=== PATIENT | male | born 1955 | race Caucasian/White ===

== ENCOUNTER 2019-06-29 14:52 | Outpatient (CLI) | payer BC ==
[2019-06-29 18:33] LABS: Mean Corpuscular HGB CONC 34.7 g/dL (32.0-36.0); Mean Corpuscular Hemoglobin 30.4 pg (27.0-31.0); Mean Corpuscular Volume 87.6 fL (78.0-98.0); Mean Platelet Volume 7.5 fL (7.4-10.4); Platelet Count 187 thou/uL (130-400); RBC Distribution Width 12.5 % (11.5-14.5); Red Blood Cell (RBC) Count 4.92 mill/uL (4.70-6.10); White Blood Cell (WBC) Count 5.2 thou/uL (4.8-10.8)
[2019-06-29 18:39] LABS: PTT 31.3 SEC (22.9-36.1); Prothrombin Time 12.8 SEC (12.0-14.7)
[2019-06-29 18:48] LABS: Anion Gap 15 mmol/L (10-20); BUN (Urea Nitrogen) 11 mg/dL (8.4-25.7); Calc. Creatinine Clearance 0 mL/min (70-130); Calcium 9.6 mg/dL (7.8-10.44); Carbon Dioxide 25 mmol/L (23-31); Chloride 104 mmol/L (98-107); Estimated GFR-MDRD 74; Glucose 244 mg/dL (80-115); Sodium 140 mmol/L (136-145)
--- NOTE | 2019-07-02 16:46 | EKG ---
Test Reason : Blood Pressure : / mmHG Vent. Rate : 060 BPM Atrial Rate : 060 BPM P-R Int : 180 ms QRS Dur : 116 ms QT Int : 432 ms P-R-T Axes : 042 003 027 degrees QTc Int : 432 ms Normal sinus rhythm Inferior infarct , age undetermined Abnormal ECG Confirmed by DR. Ruby FLORES ([id number]) on 07/02/2019 4:46:13 PM Referred By: [facility] Confirmed By:DR. Ruby FLORES
== END 2019-06-29 14:53 | disposition home or self-care (01) ==
LOC: LABBT 14:52
PROVIDERS: ATTEND Internal Medicine Cardiovascular Disease
DX: Z01.818 Encounter for other preprocedural examination (principal); I48.19 Other persistent atrial fibrillation
CPT/HCPCS: 80048; 85027; 85610; 85730; 93005; 93010

== ENCOUNTER 2019-07-02 07:00 | Day surgery (SDC) | payer BC ==
[2019-06-29 17:30] VITALS: BMI 33.4
[2019-07-02] MEDS ORDERED: Propofol 500 MG/50 ML VIAL ONE ×2 (08:59→11:21)
[2019-07-02] MEDS ORDERED: Midazolam HCl 2 mg/2 ml Vial ONE (08:59)
[2019-07-02] MEDS ORDERED: Fentanyl 100 MCG/2 ML VIAL ONE (08:59)
[2019-07-02] MEDS ORDERED: Lidocaine 1% (PF) 30 ML VIAL ONE ×2 (09:28→10:14)
[2019-07-02] MEDS ORDERED: PROPOFOL 200 MG/20 ML VIAL ONE (10:44)
--- NOTE | 2019-07-02 14:19 | OP ---
DATE OF PROCEDURE: 07/02/2019 REASON FOR PROCEDURE: Mr. Hall is a 63-year-old man with history of atrial arrhythmias. He also had issues with developing left bundle-branch block. The flecainide was required in the past to suppress his atrial arrhythmias. He also has a significant sinus node dysfunction even in the absence of significant AV gianni blocking agents, has essential tachy-madi syndrome. He is here for EP study and potential pacing lead insertion. DESCRIPTION OF PROCEDURE: The patient received propofol by anesthesia specialist. After adequate level of sedation achieved, the right femoral venous area was prepped and draped and anesthetized using subcutaneous lidocaine. Under ultrasound guidance, an 8-Italian sheath was introduced, through which an 8-mm ablation catheter was advanced to the right atrium, right ventricle, His bundle, and CS position. Pacing mapping recording was performed in each location including the pacing the left atrium via the CS. Carto 3D map of the right atrium and His bundle area was also performed, which was used in a subsequent procedure during his lead insertion. Following findings noted. Baseline rhythm was sinus rhythm with RR interval of 1136, WI 178, QRS 103, QT 435, AH 88, and HV 48 milliseconds. Sinus node recovery time was 1811, corrected 675 milliseconds. AV Wenckebach cycle length was 360 milliseconds. At this point, no definite bundle branch aberration was seen with rapid atrial pacing. AV node ERP was 600/240 milliseconds without dual AV gianni physiology noted. Short atrial fibrillation was induced, which is eventually self-terminated as well. CONCLUSION: 1. Successful visualization of the His bundle and marking out the 3D map to aid His pacer lead positioning. 2. Abnormal sinus node recovery time. 3. No left bundle aberration at this time with rapid atrial pacing. 4. No dual AV gianni physiology or accessory pathway is noted. No other supraventricular tachycardia induced except for atrial fibrillation. Job ID: [id number] [facility]
--- NOTE | 2019-07-02 14:26 | RAD ---
PORTABLE CHEST: Date: 07/02/19 HISTORY: Post pacemaker. FINDINGS: Heart size appears slightly enlarged. A pacemaker is present. No signs of pneumothorax. Lungs are irving ar of infiltrates. IMPRESSION: Post pacemaker placement. No signs of pneumothorax. POS: [facility]
== END 2019-07-02 16:30 | disposition home or self-care (01) ==
LOC: CCL 07:00
PROVIDERS: ATTEND Internal Medicine Cardiovascular Disease
PROC: 02HK3JZ Insertion of Pacemaker Lead into Right Ventricle, Percutaneous Approach (ICD-10-PCS; principal; 2019-07-02)
PROC: 02H43JZ Insertion of Pacemaker Lead into Coronary Vein, Percutaneous Approach (ICD-10-PCS; principal; 2019-07-02)
PROC: 0JH606Z Insertion of Pacemaker, Dual Chamber into Chest Subcutaneous Tissue and Fascia, Open Approach (ICD-10-PCS; principal; 2019-07-02)
PROC: 02H63JZ Insertion of Pacemaker Lead into Right Atrium, Percutaneous Approach (ICD-10-PCS; principal; 2019-07-02)
DX: I48.0 Paroxysmal atrial fibrillation (principal); I49.5 Sick sinus syndrome; E11.9 Type 2 diabetes mellitus without complications; I10 Essential (primary) hypertension; I44.7 Left bundle-branch block, unspecified; E66.9 Obesity, unspecified; Z88.6 Allergy status to analgesic agent; Z88.1 Allergy status to other antibiotic agents; Z79.4 Long term (current) use of insulin; Z79.899 Other long term (current) drug therapy; Z79.01 Long term (current) use of anticoagulants; Z88.0 Allergy status to penicillin; Z68.33 Body mass index [BMI] 33.0-33.9, adult
CPT/HCPCS: 33208; 36416; 71045; 76942; 93005; 93010; C1769; C1785; C1898; C2630; J1644; J2001; J2250; J2704; J3010; J3370; J3490

== ENCOUNTER 2019-07-10 09:21 | Emergency (ER) | payer BC ==
[2019-07-10] MEDS ORDERED: Nitroglycerin 2% Ointment 1 INCH/1 GM Packet ONE (09:44)
[2019-07-10 10:07] LABS: #Basophils 0.1 thou/uL (0.0-0.2); #Eosinphils 0.3 thou/uL (0.0-0.7); #Lymphocytes 1.4 thou/uL (1.20-3.40); #Monocytes 0.4 thou/uL (0.11-0.59); #Neutrophils 3.3 thou/uL (1.40-6.50); %Eosinophils 5.5 % (0.0-10.0); %Lymphocytes 25.9 % (21.0-51.0); %Monocytes 6.9 % (0.0-10.0); %Neutrophils 60.8 % (42.0-75.0); Hemoglobin 15.8 g/dL (14.0-18.0); Mean Corpuscular Volume 88.1 fL (78.0-98.0); Mean Platelet Volume 7.6 fL (7.4-10.4); Platelet Count 187 thou/uL (130-400); RBC Distribution Width 12.5 % (11.5-14.5); Red Blood Cell (RBC) Count 5.43 mill/uL (4.70-6.10); White Blood Cell (WBC) Count 5.4 thou/uL (4.8-10.8)
--- NOTE | 2019-07-10 10:34 | RAD ---
FRONTAL RADIOGRAPH CHEST: 07/10/2019 HISTORY: Intermittent chest pain with shortness of breath. COMPARISON: 07/02/2019 FINDINGS: Stable dual-lead transvenous pacing device, inserted via a left subclavian approach. Stable heart and mediastinal contours. No pneumothorax or pleural fluid. No focal consolidation or alveolar edema. IMPRESSION: Stable appearance of the chest. No acute findings. POS: [facility]
[2019-07-10 11:46] LABS: ALT (SGPT) 28 U/L (8-55); AST (SGOT) 21 U/L (5-34); Albumin 4.2 g/dL (3.4-4.8); Alkaline Phosphatase 58 U/L (40-110); Anion Gap 14 mmol/L (10-20); BUN (Urea Nitrogen) 14 mg/dL (8.4-25.7); Bilirubin, Total 0.4 mg/dL (0.2-1.2); Calc. Creatinine Clearance 0 mL/min (70-130); Calcium 9.6 mg/dL (7.8-10.44); Carbon Dioxide 24 mmol/L (23-31); Chloride 105 mmol/L (98-107); Estimated GFR-MDRD 82; Globulin 2.5 g/dL (2.4-3.5); Glucose 138 mg/dL (80-115); Potassium 4.2 mmol/L (3.5-5.1); Protein, Total 6.7 g/dL (5.8-8.1); Sodium 139 mmol/L (136-145)
== END 2019-07-10 13:00 | disposition home or self-care (01) ==
LOC: ERS 09:21
DX: I49.9 Cardiac arrhythmia, unspecified (principal); I48.91 Unspecified atrial fibrillation; I48.92 Unspecified atrial flutter; Z79.899 Other long term (current) drug therapy; Z79.01 Long term (current) use of anticoagulants
CPT/HCPCS: 36415; 71045; 80053; 84484; 85025; 93005

== ENCOUNTER 2019-12-14 10:08 | Outpatient (CLI) | payer BC ==
[2019-12-14 11:16] LABS: Hemoglobin 15.3 g/dL (14.0-18.0); Mean Corpuscular HGB CONC 34.3 g/dL (32.0-36.0); Mean Corpuscular Hemoglobin 30.9 pg (27.0-31.0); Mean Corpuscular Volume 90.2 fL (78.0-98.0); Mean Platelet Volume 7.5 fL (7.4-10.4); Platelet Count 170 thou/uL (130-400); RBC Distribution Width 12.2 % (11.5-14.5); Red Blood Cell (RBC) Count 4.95 mill/uL (4.70-6.10); White Blood Cell (WBC) Count 5.1 thou/uL (4.8-10.8)
[2019-12-14 11:21] LABS: PTT 32.6 SEC (22.9-36.1); Prothrombin Time 12.8 SEC (12.0-14.7)
[2019-12-14 11:24] LABS: Anion Gap 14 mmol/L (10-20); BUN (Urea Nitrogen) 14 mg/dL (8.4-25.7); Calc. Creatinine Clearance 0 mL/min (70-130); Calcium 9.6 mg/dL (7.8-10.44); Carbon Dioxide 25 mmol/L (23-31); Chloride 103 mmol/L (98-107); Estimated GFR-MDRD 81; Glucose 266 mg/dL (80-115); Potassium 4.6 mmol/L (3.5-5.1); Sodium 137 mmol/L (136-145)
== END 2019-12-14 10:09 | disposition home or self-care (01) ==
LOC: LABBT 10:08
PROVIDERS: ATTEND Internal Medicine Cardiovascular Disease
DX: Z01.812 Encounter for preprocedural laboratory examination (principal); Z51.81 Encounter for therapeutic drug level monitoring; I48.91 Unspecified atrial fibrillation; Z79.01 Long term (current) use of anticoagulants
CPT/HCPCS: 80048; 85027; 85610; 85730

== ENCOUNTER 2019-12-18 08:48 | Outpatient (CLI) | payer BC, OTHER ==
[2019-12-18 17:06] LABS: SARS-CoV-2 MS2 Positive; SARS-CoV-2 N Gene Negative; SARS-CoV-2 S Gene Negative; SARS-CoV-2 orf1ab Negative
== END 2019-12-18 08:49 | disposition home or self-care (01) ==
LOC: LABBT 08:48
PROVIDERS: ATTEND Internal Medicine Cardiovascular Disease
DX: Z01.812 Encounter for preprocedural laboratory examination (principal); Z11.59 Encounter for screening for other viral diseases; I48.91 Unspecified atrial fibrillation
CPT/HCPCS: 87635; U0003

== ENCOUNTER 2019-12-19 05:46 | Observation (INO) | payer BC ==
[2019-12-19] MEDS ORDERED: Fentanyl 100 MCG/2 ML VIAL ONE (06:52)
[2019-12-19] MEDS ORDERED: Lidocaine 2% Jelly 5 ML TUBE ONE (06:52)
[2019-12-19] MEDS ORDERED: Heparin 10,000 UNITS/1 ML VIAL ONE ×3 (07:01→10:30)
[2019-12-19] MEDS ORDERED: Isoproterenol 0.2 MG/1 ML AMP ONE (08:18)
[2019-12-19] MEDS ORDERED: PROPOFOL 200 MG/20 ML VIAL ONE (08:25)
[2019-12-19] MEDS ORDERED: Rocuronium Bromide 10 MG/ML (10ML VIAL) ONE (08:25)
[2019-12-19] MEDS ORDERED: EPHEDRINE 25 MG/5 ML SYRINGE ONE (08:25)
[2019-12-19] MEDS ORDERED: PHENYLEPHRINE-NS 100 MCG/ML 10 ML SYRINGE ONE (08:25)
[2019-12-19] MEDS ORDERED: Glycopyrrolate 0.2 MG/ML 5 ML SYRINGE ONE (08:25)
[2019-12-19] MEDS ORDERED: Succinylcholine Chloride 20 MG/ML 10 ml SYRINGE FS ONE (08:25)
[2019-12-19] MEDS ORDERED: Ondansetron PF 4 MG/2 ML Vial ONE (08:25)
[2019-12-19] MEDS ORDERED: Lidocaine 1% PF 5 ML VIAL ONE (08:25)
[2019-12-19] MEDS ORDERED: Heparin 25,000 units/D5W 500 ML ONE (08:58)
[2019-12-19] MEDS ORDERED: Rocuronium Bromide 50 MG/5 ML VIAL ONE (10:54)
[2019-12-19] MEDS ORDERED: Protamine Sulfate 50 MG/5 ML VIAL ONE (11:33)
--- NOTE | 2019-12-19 12:47 | EKG ---
Test Reason : PREOP Blood Pressure : / mmHG Vent. Rate : 066 BPM Atrial Rate : 066 BPM P-R Int : 132 ms QRS Dur : 108 ms QT Int : 422 ms P-R-T Axes : 024 -03 029 degrees QTc Int : 442 ms Electronic atrial pacemaker with one PAC one PVC When compared with ECG of 10-JUL-2019 09:30, Electronic atrial pacemaker has replaced Sinus rhythm Criteria for Septal infarct are no longer Present Confirmed by DR. Alee RADER ([id number]) on 12/19/2019 12:47:34 PM Referred By: [facility] Confirmed By:DR. Alee RADER
--- NOTE | 2019-12-19 12:48 | EKG ---
Test Reason : PREOP Blood Pressure : / mmHG Vent. Rate : 099 BPM Atrial Rate : 147 BPM P-R Int : 000 ms QRS Dur : 102 ms QT Int : 408 ms P-R-T Axes : 000 002 020 degrees QTc Int : 523 ms Atrial fibrillation Prolonged QT Abnormal ECG When compared with ECG of 19-DEC-2019 06:48, (Unconfirmed) Atrial fibrillation has replaced Electronic atrial pacemaker Vent. rate has increased BY 33 BPM QT has lengthened Confirmed by DR. Alee RADER ([id number]) on 12/19/2019 12:47:44 PM Referred By: [facility] Confirmed By:DR. Alee RADER
--- NOTE | 2019-12-19 12:50 | EKG ---
Test Reason : PREOP Blood Pressure : / mmHG Vent. Rate : 070 BPM Atrial Rate : 070 BPM P-R Int : 182 ms QRS Dur : 106 ms QT Int : 432 ms P-R-T Axes : 035 -05 028 degrees QTc Int : 466 ms Normal sinus rhythm Inferior infarct , age undetermined Abnormal ECG When compared with ECG of 19-DEC-2019 06:49, (Unconfirmed) Sinus rhythm has replaced Atrial fibrillation QT has shortened Confirmed by DR. Alee RADER ([id number]) on 12/19/2019 12:50:35 PM Referred By: [facility] Confirmed By:DR. Alee RADER
--- NOTE | 2019-12-19 12:52 | EKG ---
Test Reason : POST ABLATION Blood Pressure : / mmHG Vent. Rate : 087 BPM Atrial Rate : 087 BPM P-R Int : 164 ms QRS Dur : 102 ms QT Int : 404 ms P-R-T Axes : 035 019 038 degrees QTc Int : 486 ms Sinus rhythm with Premature atrial complexes Prolonged QT Abnormal ECG When compared with ECG of 19-DEC-2019 06:50, (Unconfirmed) Premature atrial complexes are now Present Confirmed by DR. Alee RADER ([id number]) on 12/19/2019 12:51:45 PM Referred By: [facility] Confirmed By:DR. Alee RADER
[2019-12-19 13:22] VITALS: BMI 35.4
[2019-12-19] MEDS: Sucralfate 1 GM TAB PO SCH ×2 (17:41→20:48)
[2019-12-19] MEDS: metFORMIN 500 MG TAB PO SCH (17:41)
[2019-12-19] MEDS: Ketorolac Tromethamine 30 MG/ML VIAL IVP PRN (17:45)
[2019-12-19] MEDS: Insulin Glargine 45 UNITS in Pre-Filled Syringe 1 EACH SC SCH (20:47)
[2019-12-19] MEDS: Apixaban 5 MG TAB PO SCH (20:48)
[2019-12-19] MEDS ORDERED: Pioglitazone HCl 15 MG TAB PO SCH (21:00)
[2019-12-19] MEDS ORDERED: Ezetimibe 10 MG TAB PO SCH (21:00)
[2019-12-19] MEDS ORDERED: traZODone HCl 50 MG TAB PO SCH (21:00)
[2019-12-19] MEDS ORDERED: Atorvastatin Calcium 40 MG TAB PO SCH (21:00)
[2019-12-20] MEDS: Ketorolac Tromethamine 30 MG/ML VIAL IVP PRN ×2 (02:11→08:35)
[2019-12-20] MEDS: metFORMIN 500 MG TAB PO SCH (08:36)
[2019-12-20] MEDS: Sucralfate 1 GM TAB PO SCH (08:36)
[2019-12-20] MEDS: Apixaban 5 MG TAB PO SCH (08:36)
[2019-12-20] MEDS: Insulin Glargine 45 UNITS in Pre-Filled Syringe 1 EACH SC SCH (08:37)
[2019-12-20] MEDS ORDERED: MSM PO SCH (09:00)
[2019-12-20] MEDS ORDERED: CHONDROITIN PO SCH (09:00)
[2019-12-20] MEDS ORDERED: Furosemide 40 MG TAB PO SCH (09:00)
[2019-12-20] MEDS ORDERED: Prevnar 13-Val Conj/PF 0.5 ML SYRINGE IM ONE (09:00)
[2019-12-20] MEDS ORDERED: Potassium Chloride 20 MEQ TAB PO SCH (09:00)
[2019-12-20] MEDS ORDERED: Metoprolol Tartrate 50 MG TAB PO SCH (09:00)
[2019-12-20] MEDS ORDERED: Allopurinol 300 MG TAB PO SCH (09:00)
[2019-12-20] MEDS ORDERED: Losartan 25 MG TAB PO SCH (09:00)
[2019-12-20] MEDS ORDERED: GLUCOSAMINE PO SCH (09:00)
[2019-12-20] MEDS ORDERED: Ubidecarenone 50 MG CAP PO SCH (09:00)
[2019-12-20] MEDS ORDERED: Fish Oil 1,000 MG CAP PO SCH (09:00)
[2019-12-20 11:42] VITALS: BP 131/74; TEMP 98.5
--- NOTE | 2019-12-20 13:53 | OP ---
DATE OF PROCEDURE: 12/19/2019 PROCEDURE PERFORMED: Electrophysiology study and radiofrequency ablation. REASON FOR PROCEDURE: Mr. Hall is a 64-year-old man with prior history of typical atrial flutter post ablation in 03/2017, sick sinus syndrome with tachy-madi syndrome, dual-chamber pacemaker implant in 06/2019, RV in the His bundle area. He is well anticoagulated with Eliquis. He has had breakthrough atrial fibrillation episodes even despite ongoing flecainide therapy. He is here for a pulmonary venous isolation procedure. DESCRIPTION OF PROCEDURE: The patient received general anesthesia by Anesthesia specialist. The left and right femoral venous area was prepped, draped, and accessed under ultrasound guidance. On the left side, an 11-Hebrew sheath was used to advance the intracardiac echocardiogram probe to the right atrium. It was used to monitor the pericardial space, catheter manipulation, and transseptal puncture. Also from the left femoral vein, a Preface sheath was advanced to the IVC, and through this, a duo-Deca catheter was advanced to the right atrium in the CS position. On the right side, two 8-Hebrew short sheaths were introduced initially, which were used to advance a ThermoCool SFST catheter to the right atrium. 3D map of the right atrium, His bundle, CS os, cavotricuspid isthmus was obtained. Baseline EP study was performed, demonstrating adequate block through the previously ablated cavotricuspid isthmus with transisthmus time over 200 milliseconds. The CR activation was suggestive of block as well. Following that, transseptal puncture was performed after IV heparin was administered in the IV bolus and drip fashion. The ACTs were performed throughout the case and heparin was adjusted to keep ACT over 350. Two SL1 sheaths were used for transseptal puncture with the powered [place] catheter. Through the transseptal sheath, a 20-pole Lasso catheter and a ThermoCool SFST catheter advanced to the left atrium. 3D map of the left atrium was obtained. Standard pulmonary venous isolation and also posterior wall isolation were performed with the placement of a roof and inferior-posterior line. Throughout the posterior gotti, esophageal temperature were closely monitored with the esophageal temperature probe and if any heating observed, x-ray irrigation was performed in that area. Following that, the ablation catheter was advanced to the LV and LV pacing was performed, demonstrating no VA conduction. Baseline EP study was performed, demonstrating sinus rhythm with cycle length of 991 milliseconds, OK 133 milliseconds, QRS 67 milliseconds, QT 373 milliseconds, AH 80 milliseconds, and HV 59 milliseconds. AV Wenckebach cycle was measured at less than 320 milliseconds. No retrograde VA conduction was seen. Isuprel was administered and atrial access to my testing was also ensued, demonstrating AV gianni ERP about 400/240 milliseconds without evidence of dual AV gianni physiology. Also, no evidence of accessory pathway was noted, although aberrant conduction was seen and very tightly placed PACs. During Isuprel, all 4 veins were rechecked. Any reconnection was re-ablated. The posterior wall was also isolated at the end of the case. Occasional PACs were noted in the interatrial septum area and further ablation lesion was placed in this area as well as the inferior left atrium. Right atrial lesions were also placed in the earliest activation area. At the end of the case, the PACs resolved. Burst atrial pacing did not reinduce atrial tachycardia or fibrillation or flutter. CONCLUSION: 1. Successful pulmonary venous isolation procedure and posterior wall ablation. 2. Additional lesion in atrial septum and left and right side were placed for 0 PAC. 3. Normal AV gianni and His-Purkinje function. 4. No evidence of accessory pathway, but aberrant conducted PACs are seen. 5. No evidence of dual AV gianni physiology. 6. No re-inducible atrial arrhythmias at the end of the case. 7. Adequate pacemaker function verified pre and post ablation. 8. Total of 75 ablation lesions placed at a total duration of 29 minutes and 8 seconds at 40 singh. 9. Cardiac silhouette did not change throughout the procedure on fluoroscopy and also intracardiac echo demonstrated no evidence of effusion pre and post procedure. PLAN: Stop flecainide, continue Eliquis, and monitor for recurrent atrial arrhythmias. Job ID: [id number]
--- NOTE | 2019-12-20 19:37 | DIS ---
DATE OF ADMISSION: 12/19/2019 DATE OF DISCHARGE: 12/20/2019 DIAGNOSIS: Atrial fibrillation. PROCEDURES PERFORMED: Include electrophysiology study with three-dimensional mapping and radiofrequency ablation for atrial fibrillation. HISTORY OF PRESENT ILLNESS: Mr. Hall is a 64-year-old gentleman with a history of typical atrial flutter, who underwent CTI flutter ablation in March 2017. He has history of sick sinus syndrome as well, and had a dual-chamber His pacemaker implanted in June 2019. He was appropriately anticoagulated with Eliquis. He is also known to have atrial fibrillation that is refractory to flecainide and is recommended for pulmonary venous isolation procedure. This was performed on 12/19/2019. He underwent successful PVAI as well as ablation of the posterior wall. Additional lesions were placed in the atrial septum. He was noninducible for additional arrhythmias at the end of the ablation. A total of 75 lesions were placed with a total ablation time of 29 minutes. SUBJECTIVE: Mr. Hall is reporting some chest discomfort that started postablation and continues through the night and this morning. He has received p.r.n. Tramadol with relief of his discomfort suggesting postablative cardiac irritation is the source of the pain due to inflammation. He denies any heart racing, palpitations, syncope, near syncope, stroke, stroke-like symptoms, bleeding at the groin site, difficulty urinating. OBJECTIVE: VITAL SIGNS: Temperature 98.5, pulse 71, respiration 16, oxygen is 95% on room air, blood pressure 131/74, respirations 14. GENERAL: The patient is alert and oriented. Speech is clear. Affect is appropriate. HEART: Rate is irregularly irregular with crisp S1 and S2 and exam findings suggestive of tamponade. LUNGS: Sounds are clear to auscultation throughout. Respirations are even and unlabored. NEUROLOGIC: Grossly intact. Nonfocal. Gait is stable. Bilateral groin sites are stable without hematoma or bleeding complications. They have been closed with [place] closure. EXTREMITIES: Warm and dry to touch. Well perfused without clubbing, cyanosis, or edema. DISCHARGE MEDICATIONS: Resuming home medications of; 1. Trazodone p.r.n. 2. Metformin 1000 mg b.i.d. 3. CoQ10 40 mg daily. 4. Pioglitazone at bedtime. 5. Omeprazole 40 mg daily. 6. [place]-3 daily. 7. Metoprolol succinate 75 mg q.a.m. 8. Levemir as directed. 9. Irbesartan one tab daily. 10. Glucosamine chondroitin b.i.d. 11. Ezetimibe 10 mg at bedtime. 12. Atorvastatin at bedtime. 13. Aspirin 81 mg daily. 14. Eliquis 5 mg p.o. b.i.d. 15. Allopurinol 300 mg daily. New prescriptions electronically submitted are; 1. Carafate 1 g p.o. q.i.d. x2 weeks. 2. Colchicine 0.3 mg p.o. b.i.d. for postablation chest discomfort and inflammation for 1 week. 3. Lasix 40 mg p.o. p.r.n. edema, swelling, shortness of breath, and weight gain to be taken with potassium chloride 20 mEq. DISCHARGE INSTRUCTIONS: No lifting more than 10 pounds for 1 week. No soaking baths until groin sites are healed. Contact [facility] with any postablation concerns. Stop flecainide, do not resume unless instructed to do so. Refer to [facility] post ablation discharge packet for postablation instructions and restrictions. Light activity is okay for 1 week, then resume activity gradually and as tolerated. Take Eliquis 5 mg p.o. b.i.d. without interruption. CONDITION AT DISCHARGE: Stable. Job ID: [id number]
== END 2019-12-20 12:10 | disposition home or self-care (01) ==
LOC: CCL 05:46 → 2NO 13:25
PROVIDERS: ADMIT Internal Medicine Cardiovascular Disease; ATTEND Internal Medicine Cardiovascular Disease
PROC: 02583ZZ Destruction of Conduction Mechanism, Percutaneous Approach (ICD-10-PCS; principal; 2019-12-19)
PROC: 4A023FZ Measurement of Cardiac Rhythm, Percutaneous Approach (ICD-10-PCS; 2019-12-19)
PROC: 4A0234Z Measurement of Cardiac Electrical Activity, Percutaneous Approach (ICD-10-PCS; 2019-12-19)
PROC: 02K83ZZ Map Conduction Mechanism, Percutaneous Approach (ICD-10-PCS; 2019-12-19)
DX: I48.91 Unspecified atrial fibrillation (principal); I48.3 Typical atrial flutter; I49.5 Sick sinus syndrome; E11.9 Type 2 diabetes mellitus without complications; I10 Essential (primary) hypertension; E66.9 Obesity, unspecified; Z68.35 Body mass index [BMI] 35.0-35.9, adult; Z79.01 Long term (current) use of anticoagulants; Z79.4 Long term (current) use of insulin; Z79.82 Long term (current) use of aspirin; Z79.899 Other long term (current) drug therapy; Z88.0 Allergy status to penicillin; Z88.1 Allergy status to other antibiotic agents; Z88.8 Allergy status to other drugs, medicaments and biological substances; Z95.0 Presence of cardiac pacemaker
CPT/HCPCS: 36416; 76942; 85347; 93005; 93010; 93613; 93623; 93655; 93656; 93662; 96374; 96376; C1731; C1732; C1759; C1769; G0378; J0690; J1644; J1815; J1885; J2001; J2405; J2704; J2720; J3010